=== PATIENT | male | born 1975 | race Hispanic/Latino ===

== ENCOUNTER 2022-01-14 22:02 | Emergency (ER) | payer OTHER ==
[~2022-01-14] VITALS: Ht 165.1 cm; Wt 77.1 kg
[2022-01-14 22:05] VITALS: BP 122/62
== END 2022-01-15 02:45 | disposition left against medical advice (07) ==
LOC: EDH 22:02
DX: K64.9 Unspecified hemorrhoids (principal); Z53.21 Procedure and treatment not carried out due to patient leaving prior to being seen by health care provider

== ENCOUNTER 2022-10-12 07:09 | Emergency (ER) | payer BC, OTHER ==
[~2022-10-12] VITALS: Ht 165.1 cm; Wt 79.8 kg
[2022-10-12] MEDS ORDERED: TETRACAINE HCL 0.5% 4 ML OPHTH SOLN OP SCH (08:30)
[2022-10-12] MEDS ORDERED: TETRACAINE HCL 0.5% 4 ML OPHTH SOLN ONE (08:37)
[2022-10-12] MEDS ORDERED: FLUORESCEIN SODIUM 1 STRIP STRIP ONE (08:37)
[2022-10-12 09:41] VITALS: BP 132/78
== END 2022-10-12 09:42 | disposition home or self-care (01) ==
LOC: EDH 07:09
DX: S00.212A Abrasion of left eyelid and periocular area, initial encounter (principal); X58.XXXA Exposure to other specified factors, initial encounter; Y93.89 Activity, other specified; Y92.89 Other specified places as the place of occurrence of the external cause; Y99.8 Other external cause status
CPT/HCPCS: 99281